=== PATIENT | female | born 1990 | race African-American/Black ===

== ENCOUNTER 2024-04-16 11:20 | Emergency (ER) | payer MEDICAID ==
[~2024-04-16] VITALS: Ht 160 cm; Wt 46.5 kg
[2024-04-16 12:24] LABS: BASO % 0.2 % (0.0-1.0); EOS # 0.1 10^3/uL (0.0-0.5); EOS % 1.2 % (0.0-3.0); HEMATOCRIT 31.3 % (36.0-47.0); HEMOGLOBIN 10.5 g/dl (12.0-15.5); LYMPH # 1.6 10^3/uL (1.5-5.0); LYMPH % 27.6 % (24.0-44.0); MEAN CORPUSCULAR HEMOGLOBIN 28.6 pg (27.0-33.0); MEAN CORPUSCULAR HGB CONC 33.5 g/dl (32.0-36.5); MEAN CORPUSCULAR VOLUME 85.3 fl (80.0-96.0); MONO % 17.1 % (2.0-8.0); NEUTROPHILS # 3.1 10^3/uL (1.5-8.5); NEUTROPHILS % 53.6 % (36.0-66.0); PLATELET COUNT, AUTOMATED 246 10^3/uL (150-450); RED BLOOD COUNT 3.67 10^6/uL (4.00-5.40); WHITE BLOOD COUNT 5.8 10^3/uL (4.0-10.0)
[2024-04-16 12:46] LABS: BLOOD UREA NITROGEN 7 MG/DL (9-23); CALCIUM LEVEL 9.8 MG/DL (8.5-10.1); CARBON DIOXIDE LEVEL 25 MMOL/L (20-31); CHLORIDE LEVEL 105 MMOL/L (98-107); CREATININE FOR GFR 0.61 MG/DL (0.55-1.30); GLOMERULAR FILTRATION RATE > 60.0 (>60); GLUCOSE, FASTING 97 MG/DL (60-100); POTASSIUM SERUM 3.8 MMOL/L (3.5-5.1); SODIUM LEVEL 136 MMOL/L (136-145)
[2024-04-16 14:18] LABS: Trichomonas vaginalis (AMP) NOT DETECTED (NEGATIVE)
[2024-04-16 14:41] LABS: GC DNA AMPLIFICATION NEGATIVE (NEGATIVE)
[2024-04-16] MEDS ORDERED: ONDA-282 PO (15:09)
[2024-04-16 15:18] VITALS: BP 126/63; TEMP 97.6; O2SAT 100
[2024-04-21] MEDS ORDERED: CEPH500C PO (10:32)
== END 2024-04-16 15:19 | disposition home or self-care (01) ==
LOC: M ED 11:20
DX: O34.81 Maternal care for other abnormalities of pelvic organs, first trimester (principal); N83.292 Other ovarian cyst, left side; Z3A.13 13 weeks gestation of pregnancy

== ENCOUNTER 2024-05-17 11:08 | Emergency (ER) | payer MEDICAID, OTHER ==
[~2024-05-17] VITALS: Ht 160 cm; Wt 49.2 kg
[~2024-05-17 11:08] MED LIST: CEPH500C PO; ONDA-282 PO
[2024-05-17 17:12] LABS: BASO % 0.3 % (0.0-1.0); EOS # 0.1 10^3/uL (0.0-0.5); EOS % 1.5 % (0.0-3.0); HEMATOCRIT 28.5 % (36.0-47.0); HEMOGLOBIN 9.4 g/dl (12.0-15.5); LYMPH # 1.7 10^3/uL (1.5-5.0); LYMPH % 25.8 % (24.0-44.0); MEAN CORPUSCULAR HEMOGLOBIN 28.7 pg (27.0-33.0); MEAN CORPUSCULAR VOLUME 86.9 fl (80.0-96.0); MONO % 14.5 % (2.0-8.0); NEUTROPHILS # 3.8 10^3/uL (1.5-8.5); NEUTROPHILS % 57.6 % (36.0-66.0); PLATELET COUNT, AUTOMATED 305 10^3/uL (150-450); RED BLOOD COUNT 3.28 10^6/uL (4.00-5.40); WHITE BLOOD COUNT 6.6 10^3/uL (4.0-10.0)
[2024-05-17 17:39] LABS: BLOOD UREA NITROGEN 9 MG/DL (9-23); CALCIUM LEVEL 9.7 MG/DL (8.5-10.1); CARBON DIOXIDE LEVEL 25 MMOL/L (20-31); CHLORIDE LEVEL 102 MMOL/L (98-107); GLOMERULAR FILTRATION RATE > 60.0 (>60); GLUCOSE, FASTING 83 MG/DL (60-100); POTASSIUM SERUM 4.1 MMOL/L (3.5-5.1); SODIUM LEVEL 133 MMOL/L (136-145)
[2024-05-17 17:51] LABS: Trichomonas vaginalis (AMP) NOT DETECTED (NEGATIVE)
[2024-05-17 17:52] LABS: HCG, SERUM QUANTITATIVE 88751.9 MIU/ML (<4.2)
[2024-05-17 18:15] LABS: GC DNA AMPLIFICATION NEGATIVE (NEGATIVE)
[2024-05-17 18:46] VITALS: BP 121/72; TEMP 97.9; O2SAT 100
== END 2024-05-17 18:51 | disposition home or self-care (01) ==
LOC: M ED 11:08
DX: Z34.92 Encounter for supervision of normal pregnancy, unspecified, second trimester (principal); Z3A.17 17 weeks gestation of pregnancy

== ENCOUNTER → 2024-05-26 | Outpatient (CLI) | payer OTHER ==
[2024-05-26 17:45] LABS: HEMATOCRIT 27.9 % (36.0-47.0); MEAN CORPUSCULAR HEMOGLOBIN 28.5 pg (27.0-33.0); MEAN CORPUSCULAR HGB CONC 32.3 g/dl (32.0-36.5); MEAN CORPUSCULAR VOLUME 88.3 fl (80.0-96.0); PLATELET COUNT, AUTOMATED 306 10^3/uL (150-450); RED BLOOD COUNT 3.16 10^6/uL (4.00-5.40); WHITE BLOOD COUNT 6.1 10^3/uL (4.0-10.0)
[2024-05-26 18:40] LABS: HIV 1&2 SCREEN NEGATIVE (NEGATIVE)
[2024-05-26 18:48] LABS: HEPATITIS C VIRUS ABY INDEX 0.06 INDEX (<0.8)
[2024-05-26 20:39] LABS: GC DNA AMPLIFICATION NEGATIVE (NEGATIVE)
== END ==
LOC: M PLALAB 14:43
PROVIDERS: ATTEND Specialist
DX: Z34.81 Encounter for supervision of other normal pregnancy, first trimester (principal)

== ENCOUNTER 2024-06-10 04:05 | Inpatient (IN) | payer OTHER ==
[~2024-06-10] VITALS: Ht 160 cm; Wt 50.6 kg
[2024-06-10] VITALS (30 sets, daily range): BP systolic 95–155; BP diastolic 50–83
[2024-06-10] MEDS ORDERED: PRENTAB9 PO (04:26)
[2024-06-10] MEDS ORDERED: HOME MED LIST COMPLETE! XX SCH (04:30)
[2024-06-10 06:36] LABS: Trichomonas vaginalis (AMP) NOT DETECTED (NEGATIVE)
[2024-06-10 07:00] LABS: GC DNA AMPLIFICATION NEGATIVE (NEGATIVE)
[2024-06-10] MEDS ORDERED: OXYTOCIN INJ 10UNITS/ML 1ML VIAL IM PRN (08:40)
[2024-06-10] MEDS ORDERED: CARBOPROST TROMETHAMINE 250 MCG/ML AMP IM PRN (08:40)
[2024-06-10] MEDS ORDERED: TRANEXAMIC ACID INJection 1,000 MG in NS 100 ML IV PRN (08:40)
[2024-06-10] MEDS ORDERED: LIDOCAINE 1% MDV 20ML VIAL INFIL PRN (08:40)
[2024-06-10] MEDS ORDERED: METHYLERGONOVINE MALEATE 0.2MG/ML 1ML VIAL IM PRN (08:40)
[2024-06-10] MEDS: LACTATED RINGER'S 1000 ML IV STA (09:06)
[2024-06-10] MEDS: ACETAMINOPHEN 500 MG TAB PO PRN (09:22)
[2024-06-10] MEDS: AMPICILLIN SOD/SULBACTAM SOD 3 GM in D5W MINI-BAG PLUS 100 ML IV SCH (09:23)
[2024-06-10 09:36] LABS: HEMATOCRIT 26.7 % (36.0-47.0); HEMOGLOBIN 8.8 g/dl (12.0-15.5); MEAN CORPUSCULAR HEMOGLOBIN 28.4 pg (27.0-33.0); MEAN CORPUSCULAR VOLUME 86.1 fl (80.0-96.0); PLATELET COUNT, AUTOMATED 293 10^3/uL (150-450); WHITE BLOOD COUNT 11.7 10^3/uL (4.0-10.0)
[2024-06-10] MEDS: LR 1,000 ML IV SCH ×2 (09:36→14:19)
[2024-06-10 12:18] LABS: SICKLE CELL SCREEN NEGATIVE (NEGATIVE)
[2024-06-10] MEDS: OXYTOCIN DRIP 30 UNITS in IV 1 EA IV SCH ×2 (14:20→16:50)
[2024-06-10] MEDS: OXYTOCIN DRIP 30 UNITS in IV 1 EA IV PRN (16:41)
[2024-06-10] MEDS ORDERED: DIBUCAINE 1% OINTMENT 30GM TOP PRN (16:50)
[2024-06-10] MEDS ORDERED: ACETAMINOPHEN 325 MG TAB PO PRN (16:50)
[2024-06-10] MEDS ORDERED: MOM 30ML SUSPENSION UDC PO PRN (16:50)
[2024-06-10] MEDS ORDERED: IBUPROFEN 600MG TAB PO PRN (16:50)
[2024-06-10] MEDS ORDERED: RHOGAM 300MCG (1500IU) INJ IM SCH (16:50)
[2024-06-10] MEDS ORDERED: DOCUSATE SODIUM 100MG CAPSULE PO PRN (16:50)
[2024-06-10] MEDS ORDERED: METHYLERGONOVINE MALEATE 0.2 MG TAB PO PRN (16:50)
[2024-06-10] MEDS ORDERED: ACETAMINOPHEN 500 MG TAB PO PRN (16:50)
[2024-06-10] MEDS ORDERED: IBUPROFEN 800 MG TAB PO PRN (16:50)
[2024-06-10] MEDS ORDERED: ANUSOL HC CREAM 30GM TOP PRN (16:50)
[2024-06-11] VITALS (8 sets, daily range): BP systolic 91–129; BP diastolic 52–74
[2024-06-11] MEDS ORDERED: PRENATAL VITAMINS CHEWABLE TABLET PO SCH (09:00)
[2024-06-12] MEDS ORDERED: MEASLES,MUMPS,RUBELLA VACCINE INJ (MMR-II) SC.IMMUN ONE (09:00)
== END 2024-06-11 08:37 | disposition home or self-care (01) | DRG 560 ==
LOC: M LDO 04:05 → M LDI 08:25
PROVIDERS: ADMIT Advanced Practice Midwife; ATTEND Obstetrics & Gynecology
PROC: 10E0XZZ Delivery of Products of Conception, External Approach (ICD-10-PCS; principal; 2024-06-10)
PROC: 3E033VJ Introduction of Other Hormone into Peripheral Vein, Percutaneous Approach (ICD-10-PCS; 2024-06-10)
DX: O42.112 Preterm premature rupture of membranes, onset of labor more than 24 hours following rupture, second trimester (principal); O34.32 Maternal care for cervical incompetence, second trimester; O41.1220 Chorioamnionitis, second trimester, not applicable or unspecified; O32.1XX0 Maternal care for breech presentation, not applicable or unspecified; Z37.1 Single stillbirth; Z3A.20 20 weeks gestation of pregnancy

== ENCOUNTER → 2024-10-14 | Outpatient (REF) | payer OTHER ==
[~2024-10-14] MED LIST changes: +PRENTAB9 PO
[2024-10-18 14:18] LABS: HPV APTIMA Detected (Not Detected)
== END ==
LOC: M PLALAB 08:23
PROVIDERS: ATTEND Obstetrics & Gynecology
DX: Z12.4 Encounter for screening for malignant neoplasm of cervix (principal); R87.612 Low grade squamous intraepithelial lesion on cytologic smear of cervix (LGSIL)

== ENCOUNTER → 2024-10-14 | Outpatient (CLI) | payer OTHER | LOC: M PLALAB 09:15 | PROVIDERS: ATTEND Obstetrics & Gynecology | DX: O36.80X0 Pregnancy with inconclusive fetal viability, not applicable or unspecified (principal) ==

== ENCOUNTER → 2024-11-25 | Outpatient (REF) | payer OTHER ==
[2024-11-25 15:35] LABS: Trichomonas vaginalis (AMP) NOT DETECTED (NEGATIVE)
[2024-11-25 15:58] LABS: GC DNA AMPLIFICATION NEGATIVE (NEGATIVE)
== END ==
LOC: M PLALAB 08:57
PROVIDERS: ATTEND Nurse Practitioner Family
DX: Z34.81 Encounter for supervision of other normal pregnancy, first trimester (principal); N89.8 Other specified noninflammatory disorders of vagina

== ENCOUNTER → 2024-11-25 | Outpatient (CLI) | payer OTHER ==
[2024-11-25 13:51] LABS: HEMOGLOBIN 8.8 g/dl (12.0-15.5); MEAN CORPUSCULAR HEMOGLOBIN 23.5 pg (27.0-33.0); MEAN CORPUSCULAR HGB CONC 31.4 g/dl (32.0-36.5); MEAN CORPUSCULAR VOLUME 74.7 fl (80.0-96.0); PLATELET COUNT, AUTOMATED 346 10^3/uL (150-450); RED BLOOD COUNT 3.75 10^6/uL (4.00-5.40); WHITE BLOOD COUNT 4.6 10^3/uL (4.0-10.0)
[2024-11-25 14:31] LABS: HIV 1&2 SCREEN NEGATIVE (NEGATIVE)
[2024-11-25 14:40] LABS: HEPATITIS C VIRUS ABY INDEX 0.05 INDEX (<0.8)
== END ==
LOC: M PLALAB 10:28
PROVIDERS: ATTEND Nurse Practitioner Family
DX: Z34.81 Encounter for supervision of other normal pregnancy, first trimester (principal)

== ENCOUNTER → 2024-12-26 | Outpatient (REF) | payer OTHER | LOC: M SFHCWAGY 15:12 | PROVIDERS: ATTEND Advanced Practice Midwife | DX: Z34.82 Encounter for supervision of other normal pregnancy, second trimester (principal) ==

== ENCOUNTER 2024-12-30 13:41 | Outpatient (CLI) | payer OTHER ==
[~2024-12-30] VITALS: Ht 165.1 cm; Wt 49.9 kg
[~2024-12-30 13:41] MED LIST changes: -FERR325T3 PO; -PROG200C32 PV
[2024-12-30 14:03] VITALS: BP 136/85
[2024-12-30] MEDS ORDERED: PROG200C32 PV (14:37)
[2024-12-30] MEDS ORDERED: FERR325T3 PO (16:13)
== END 2024-12-30 15:07 | disposition home or self-care (01) ==
LOC: M LDO 13:41
PROVIDERS: ATTEND Specialist
DX: O34.32 Maternal care for cervical incompetence, second trimester (principal); O26.872 Cervical shortening, second trimester; O09.292 Supervision of pregnancy with other poor reproductive or obstetric history, second trimester; O99.012 Anemia complicating pregnancy, second trimester; D50.9 Iron deficiency anemia, unspecified; Z3A.17 17 weeks gestation of pregnancy; Z75.8 Other problems related to medical facilities and other health care

== ENCOUNTER → 2024-12-30 | Outpatient (CLI) | payer OTHER ==
[~2024-12-30] MED LIST changes: +FERR325T3 PO; +PROG200C32 PV
== END ==
LOC: M WHC 10:34
PROVIDERS: ATTEND Advanced Practice Midwife
DX: O44.42 Low lying placenta NOS or without hemorrhage, second trimester (principal); Z87.42 Personal history of other diseases of the female genital tract; Z3A.17 17 weeks gestation of pregnancy

== ENCOUNTER 2025-03-18 03:31 | Emergency (ER) | payer OTHER ==
[~2025-03-18 03:31] MED LIST changes: +FERR325T3 PO; +PROG200C32 PV
[2025-03-18] MEDS ORDERED: VITA100T59 PO (04:17)
[2025-03-19] MEDS ORDERED: IBUP80TA PO (03:14)
[2025-03-19] MEDS ORDERED: PERCOCET PO (03:14)
[2025-03-19] MEDS ORDERED: COLA100C5 PO (03:14)
== END 2025-03-18 03:34 | disposition admitted as inpatient to this hospital (09) ==
LOC: M ED 03:31 → M ED INP 03:34
DX: Z53.21 Procedure and treatment not carried out due to patient leaving prior to being seen by health care provider (principal)

== ENCOUNTER 2025-03-18 03:39 | Outpatient (CLI) | payer OTHER ==
[~2025-03-18] VITALS: Ht 160 cm; Wt 53.0 kg
[2025-03-18 03:58] VITALS: BP 117/59
[2025-03-18] MEDS ORDERED: VITA100T59 PO (04:17)
[2025-03-18] MEDS ORDERED: HOME MED LIST COMPLETE! XX SCH (04:20)
[2025-03-18 09:48] VITALS: BP 109/63; O2SAT 98
[2025-03-19] MEDS ORDERED: PERCOCET PO (03:14)
[2025-03-19] MEDS ORDERED: IBUP80TA PO (03:14)
[2025-03-19] MEDS ORDERED: COLA100C5 PO (03:14)
== END 2025-03-18 11:00 | disposition home or self-care (01) ==
LOC: M LDO 03:39
PROVIDERS: ATTEND Specialist
DX: O26.853 Spotting complicating pregnancy, third trimester (principal); O34.33 Maternal care for cervical incompetence, third trimester; O99.013 Anemia complicating pregnancy, third trimester; O09.293 Supervision of pregnancy with other poor reproductive or obstetric history, third trimester; O36.5930 Maternal care for other known or suspected poor fetal growth, third trimester, not applicable or unspecified; D50.9 Iron deficiency anemia, unspecified; Z75.8 Other problems related to medical facilities and other health care; Z3A.28 28 weeks gestation of pregnancy
CPT/HCPCS: 59025; 76815; G0463

== ENCOUNTER 2025-03-18 19:26 | Emergency (ER) | payer OTHER ==
[~2025-03-18] VITALS: Ht 162.6 cm; Wt 52.3 kg
[~2025-03-18 19:26] MED LIST changes: +VITA100T59 PO
[2025-03-18 19:30] VITALS: BP 137/80; TEMP 98.4; O2SAT 100
[2025-03-19] MEDS ORDERED: PERCOCET PO (03:14)
[2025-03-19] MEDS ORDERED: IBUP80TA PO (03:14)
[2025-03-19] MEDS ORDERED: COLA100C5 PO (03:14)
== END 2025-03-18 19:42 | disposition admitted as inpatient to this hospital (09) ==
LOC: M ED 19:26
DX: Z53.21 Procedure and treatment not carried out due to patient leaving prior to being seen by health care provider (principal)

== ENCOUNTER 2025-03-18 19:44 | Inpatient (IN) | payer OTHER ==
[~2025-03-18] VITALS: Ht 160 cm; Wt 52.5 kg
[2025-03-18] VITALS (9 sets, daily range): BP systolic 101–116; BP diastolic 56–67
[2025-03-18] MEDS ORDERED: CARBOPROST TROMETHAMINE 250 MCG/ML AMP IM PRN (20:40)
[2025-03-18] MEDS ORDERED: LR 1,000 ML IV SCH (20:40)
[2025-03-18] MEDS ORDERED: OXYTOCIN DRIP 30 UNITS in IV 1 EA IV PRN (20:40)
[2025-03-18] MEDS ORDERED: OXYTOCIN INJ 10UNITS/ML 1ML VIAL IM PRN (20:40)
[2025-03-18] MEDS ORDERED: METHYLERGONOVINE MALEATE 0.2 MG/ML 1 ML VIAL IM PRN (20:40)
[2025-03-18] MEDS ORDERED: LIDOCAINE 1% MDV 20 ML VIAL INFIL PRN (20:40)
[2025-03-18] MEDS ORDERED: TRANEXAMIC ACID INJection 1,000 MG in NS 100 ML IV PRN (20:40)
[2025-03-18] MEDS: LACTATED RINGER'S 1000 ML IV STA (20:54)
[2025-03-18] MEDS ORDERED: ONDANSETRON 4MG 2ML VIAL IV PRN (21:05)
[2025-03-18] MEDS ORDERED: CALCIUM GLUCONATE 1,000 MG in DEXTROSE 5% (D5W) MINI-BAG PLU 100 ML IV PRN (21:05)
[2025-03-18 21:12] LABS: PLATELET COUNT, AUTOMATED 253 10^3/uL (150-450)
[2025-03-18] MEDS: BETAMETHASONE SOLUSPAN 6 MG/ML 5 ML VIAL IM SCH (21:27)
[2025-03-18] MEDS: MAG Sulf (L&D) 4 GM/100 ML 4 GM in IV 1 EA IV ONE (21:27)
[2025-03-18] MEDS: MAG Sulf (OBGYN) 20GM/500ML 20,000 MG in IV 1 EA IV SCH (21:54)
[2025-03-18] MEDS: INDOMETHACIN 25 MG CAP PO ONE ×2 (21:55→23:43)
[2025-03-18 22:02] LABS: HIV 1&2 SCREEN NEGATIVE (NEGATIVE)
[2025-03-18 22:10] LABS: HEPATITIS C VIRUS ABY INDEX 0.04 INDEX (<0.8)
[2025-03-19] VITALS (9 sets, daily range): BP systolic 102–124; BP diastolic 54–75; O2SAT 99–100
[2025-03-19] MEDS: NIFEdipine 10 MG CAP PO ONE (00:52)
[2025-03-19] MEDS: ceFAZolin SODIUM 2 GM in DEXTROSE 5% (D5W) ADV/MINI-BAG 50 ML IV ONE (01:37)
[2025-03-19] MEDS: AZITHROMYCIN INJ 500 MG, VIAL MATE ADAPTER 1 EACH in NS 250 ML IV ONE (01:37)
[2025-03-19] MEDS: BICITRA 30 ML SOLN UDC PO ONE (01:37)
[2025-03-19] MEDS ORDERED: MORPHINE PRES-FREE INJ 10 MG/10 ML VIAL As Ordered ONE (01:43)
[2025-03-19] MEDS ORDERED: dexAMETHasone 4 MG/ML 1 ML VIAL As Ordered ONE (01:43)
[2025-03-19] MEDS ORDERED: KETOROLAC 30 MG/ML 1 ML VIAL As Ordered ONE (01:43)
[2025-03-19] MEDS ORDERED: ONDANSETRON 4MG 2ML VIAL As Ordered ONE (01:43)
[2025-03-19] MEDS ORDERED: ACETAMINOPHEN 1000MG/100ML IV BAG As Ordered ONE (01:47)
[2025-03-19] MEDS ORDERED: OXYTOCIN 30UNITS IN 0.9% NaCl 500ML IV BAG As Ordered ONE (01:48)
[2025-03-19 02:17] LABS: CORD GAS ABE A -3.8; CORD GAS HCO3 A 19.7 MMOL/L; CORD GAS O2 SAT A 85.0 %; CORD GAS PCO2 A 30.6 mmHg; CORD GAS PH A 7.426 UNITS; CORD GAS PO2 A 35.0 mmHg; CORD GAS SBC A 21.1 MMOL/L; CORD GAS TCO2 A 20.6 MMOL/L
[2025-03-19 02:18] LABS: CORD GAS ABE V -2.8; CORD GAS HCO3 V 21.4 MMOL/L; CORD GAS O2 SAT V 85.3 %; CORD GAS PCO2 V 34.8 mmHg; CORD GAS PH V 7.406 UNITS; CORD GAS PO2 V 37.7 mmHg; CORD GAS SBC V 21.9 MMOL/L; CORD GAS TCO2 V 22.4 MMOL/L
[2025-03-19] MEDS ORDERED: PHENYLephrine 500MCG 5ML (100MCG/ML) SYRINGE As Ordered ONE (02:21)
[2025-03-19] MEDS ORDERED: TRANEXAMIC ACID 100 MG/ML 10ML VIAL As Ordered ONE (02:25)
[2025-03-19] MEDS ORDERED: CALCIUM CARBONATE 500 MG CHEW U/D PO PRN (03:00)
[2025-03-19] MEDS: OXYTOCIN DRIP 30 UNITS in IV 1 EA IV SCH (03:00)
[2025-03-19] MEDS ORDERED: RHOGAM 300MCG (1500IU) INJ IM SCH (03:00)
[2025-03-19] MEDS: LR 1,000 ML IV SCH (03:00)
[2025-03-19] MEDS ORDERED: MORPHINE 4 MG/ML 1 ML VIAL IV PRN (03:00)
[2025-03-19] MEDS ORDERED: ONDANSETRON 4MG 2ML VIAL IV PRN (03:00)
[2025-03-19] MEDS ORDERED: PERCOCET 5MG/325MG TAB PO PRN (03:00)
[2025-03-19] MEDS ORDERED: ANUSOL HC CREAM 30 GM TOP PRN (03:00)
[2025-03-19] MEDS ORDERED: PERCOCET PO (03:14)
[2025-03-19] MEDS ORDERED: COLA100C5 PO (03:14)
[2025-03-19] MEDS ORDERED: IBUP80TA PO (03:14)
[2025-03-19] MEDS ORDERED: INDOMETHACIN 25 MG CAP PO SCH (05:00)
[2025-03-19] MEDS: KETOROLAC 30 MG/ML 1 ML VIAL IV SCH (08:38)
[2025-03-19] MEDS: FERROUS SULFATE 325 MG TAB PO SCH (09:00)
[2025-03-19] MEDS: DOCUSATE SODIUM 100 MG CAPSULE PO SCH (09:00)
[2025-03-19] MEDS: PRENATAL VITAMINS CHEWABLE TABLET PO SCH (09:00)
[2025-03-19] MEDS: ACETAMINOPHEN 500 MG TAB PO PRN (23:33)
[2025-03-20] VITALS (7 sets, daily range): BP systolic 99–132; BP diastolic 57–77; TEMP 99.3; O2SAT 98–100
[2025-03-20] MEDS: IBUPROFEN 800 MG TAB PO SCH (04:00)
[2025-03-20 07:21] LABS: PLATELET COUNT, AUTOMATED 191 10^3/uL (150-450)
[2025-03-20] MEDS: PERCOCET 5MG/325MG TAB PO PRN (18:09)
[2025-03-21 02:30] VITALS: BP 103/53; O2SAT 99
[2025-03-21 05:58] VITALS: BP 115/70; O2SAT 100
[2025-03-21 08:30] VITALS: O2SAT 98
[2025-03-21] MEDS: SIMETHICONE 80MG CHEW TAB PO PRN (08:37)
[2025-03-21] MEDS: MEASLES,MUMPS,RUBELLA VACCINE INJ (MMR-II) SC.IMMUN ONE (09:00)
[2025-03-21 10:00] VITALS: BP 118/79; O2SAT 100
== END 2025-03-21 16:10 | disposition home or self-care (01) | DRG 540 ==
LOC: M LDO 19:44 → M LDI 03-19 01:09 → M OBS 03-19 04:50
PROVIDERS: ADMIT Advanced Practice Midwife; ATTEND Obstetrics & Gynecology
PROC: 10D00Z1 Extraction of Products of Conception, Low, Open Approach (ICD-10-PCS; principal; 2025-03-19 01:35)
DX: O45.93 Premature separation of placenta, unspecified, third trimester (principal); O34.33 Maternal care for cervical incompetence, third trimester; Z3A.28 28 weeks gestation of pregnancy; Z37.0 Single live birth

== ENCOUNTER 2025-03-24 22:37 | Emergency (ER) | payer OTHER ==
[~2025-03-24] VITALS: Ht 154.9 cm; Wt 50.8 kg
[~2025-03-24 22:37] MED LIST changes: +COLA100C5 PO; +IBUP80TA PO; +PERCOCET PO
[2025-03-24 22:39] VITALS: BP 137/86; TEMP 97.6; O2SAT 100
== END 2025-03-25 01:15 | disposition left against medical advice (07) ==
LOC: M ED 22:37
DX: Z53.21 Procedure and treatment not carried out due to patient leaving prior to being seen by health care provider (principal)